=== PATIENT | male | born 1995 | race Caucasian/White ===

== ENCOUNTER 2018-09-27 18:49 | Observation (INO) ==
[2018-09-27] MEDS ORDERED: MoRPHine SULFATE 10 MG/ML CARP/VIAL IV STA (19:13)
[2018-09-27] MEDS ORDERED: ONDANSETRON INJ 2 MG/ML 2 ML VIAL IV STA (19:13)
[2018-09-27] MEDS: SODIUM CHLORIDE 0.9% 1000ML 1,000 ML IV SCH ×2 (19:27→21:12)
[2018-09-27 19:50] LABS: Basophils # (auto) 0.05 K/uL (0-0.2); Basophils % (auto) 0.3 %; Eosinophils # (auto) 0.09 K/uL (0-0.5); Eosinophils % (auto) 0.5 %; Hematocrit (blood only) 45.5 % (42-52); Hemoglobin 16.4 g/dL (14.0-18.0); Immature Granulocytes # (auto) 0.06 K/uL (0.00-0.02); Immature Granulocytes % (auto) 0.3 %; Lymphocytes # (auto) 1.62 K/uL (1.2-3.4); Lymphocytes % (auto) 8.6 %; Mean Corpuscular Volume 88.5 fL (80-100); Mean Platelet Volume 10.2 fL (7.4-10.4); Monocytes # (auto) 0.98 K/uL (0.11-0.59); Monocytes % (auto) 5.2 %; Neutrophils # (auto) 16.13 K/uL (1.4-6.5); Neutrophils % (auto) 85.1 %; Platelet Count 260 K/uL (130-400); RDW Coefficient of Variation 12.1 % (11.5-14.5); Red Blood Count 5.14 M/uL (4.7-6.1); White Blood Count 18.93 K/uL (4.8-10.8)
[2018-09-27 19:59] LABS: Albumin Level 4.9 gm/dl (3.4-5.0); BUN Creatinine Ratio 12.8 (10-20); Creatinine Clr Calc Pharmacy 107.1 ml/min; Est GFR (African American) 121.2; Est GFR (Non-African American) 104.6; Potassium 3.2 mmol/L (3.5-5.1)
[2018-09-27 20:02] LABS: Albumin Globulin Ratio 1.4 (0.9-2); Bilirubin,Total 1.1 mg/dl (0.1-1); Globulin 3.4 gm/dl (2.5-4.0); Total Protein 8.3 gm/dl (6.4-8.2)
[2018-09-27] MEDS ORDERED: IOVERSOL 100ml IV PRN (20:42)
--- NOTE | 2018-09-27 21:04 | CT Scan Report ---
ABDOMEN AND PELVIS CT WITH IV CONTRAST CT DOSE: 262.16 mGy.cm HISTORY: Acute abdominal pain with nausea and vomiting abd pain. N/V. TECHNIQUE: Multiaxial CT images of the abdomen and pelvis were performed following the use of intrave nous contrast. A dose lowering technique was utilized adhering to the principles of ALARA. COMPARISON STUDY: None. FINDINGS: Minimal dependent subsegmental bibasilar atelectasis. Additionally, there are a few scattered tree-i n-bud nodules with groundglass nodules of the basal right lower lobe measuring up to 7 mm. Indetermin ate centrally lucent thin-walled 4.5 cm nodule of the right lower lobe on image 52 series 3. No pneum atosis or pneumoperitoneum. Imaged inferior cardiac chambers appear unremarkable. Gallbladder, liver, spleen, pancreas and adrenal glands appear unremarkable. Kidneys, ureters and betty dder are unremarkable. Phleboliths noted about the pelvis. Aorta and IVC are unremarkable. No adenopa thy. No small bowel obstruction. Retained enteric contrast noted about the cecum and right hemicolon. Appe ndix is dilated and fluid-filled measuring up to 9 mm demonstrating mucosal hyperemia with surroundin g inflammatory stranding. Trace free pelvic fluid within the dependent pelvis, likely reactive. No dr ainable fluid collection or evidence of perforation. Mildly prominent right lower quadrant adenopathy , likely reactive. Soft tissues are within normal limits. The bones appear intact. IMPRESSION: 1. Findings compatible with acute uncomplicated appendicitis. No evidence of perforation or drainable fluid collection. 2. Partially imaged subsegmental tree-in-bud nodules of the right lower lobe suggest bronchiolitis wi th additional groundglass nodules demonstrating central lucency measuring up to 7 mm, suggesting infe ctious or inflammatory pneumonitis. 3. No bowel obstruction. Electronically signed by: Davie Bentley M.D. 09/27/2018 9:03 PM
[2018-09-27] MEDS ORDERED: cefOXitin 2,000 MG/60 ML BAG IV STA (21:26)
[2018-09-27] MEDS ORDERED: MoRPHine SULFATE 4 MG/ML 1 ML CARP\\VIAL IV STA (21:26)
[2018-09-27] MEDS ORDERED: SODIUM CHLORIDE 0.9% 1000ML 1,000 ML IV SCH (21:30)
[2018-09-27 21:33] LABS: Appearance Urine Clear (Clear); Bacteria Urine Automated Negative (Negative); Bilirubin Urine Negative (Negative); Cast Urine Automated 0 /lpf (0-5); Color Urine Yellow; Glucose Urine UA Negative (Negative); Leukocyte Esterase Urine Negative (Negative); Nitrite Urine Negative (Negative); Protein Urine Negative (Negative); Specific Gravity Urine 1.039 (1.000-1.030); Urobilinogen Urine Negative (Negative); WBC Urine Automated 0 /hpf (0-5)
[2018-09-27 21:34] LABS: Ketones Urine 3+ (Negative)
[2018-09-27 21:59] LABS: Amphetamines+Metham, Urine Neg (Neg); Barbiturates, Urine Neg (Neg); Benzodiazepine, Urine Neg (Neg); Cocaine, Urine Neg (Neg); MDMA (Ecstacy), Urine Neg (Neg); Methadone, Urine Neg (Neg); Opiate, Urine Pos (Neg); Phencyclidine, Urine Neg (Neg)
[2018-09-27] MEDS ORDERED: BUPIVACAINE/EPINEPHRINE 0.5% MPF 1:200,000 30 ML VIAL ONE (22:12)
--- NOTE | 2018-09-27 22:12 | History & Physical Report ---
Date of Service September 27, 2018 Assessment & Plan (1) Acute appendicitis: ct scan c/w acute appendicitis leukocytosis discussed options/risks with pt and family discussed (bleeding/infection/leaks/dvt/pe etc...) questions answered will proceed with tabatha santo History of Present Illness Primary Care Provider: NO PCP 23 y/o with abdominal pain beginning around noon today. progressively worsened. pain now from umbilicus toward RLQ. Allergies Allergy/AdvReac Type Severity Reaction Status Date / Time No Known Allergies Allergy Verified 09/27/18 19:40 Home Medications Home Medications Medication Instructions Recorded Confirmed Type No Known Home Medications 09/27/18 09/27/18 History Past Med/Surg History Social History Feels Safe at Home: Yes Smoking Status: Never smoker Review of Systems All systems reviewed & are unremarkable except as noted in HPI & below Physical Exam 2 Vital Signs (Past 24 Hours): Last Vital Signs Temp 36.4 C L 09/27/18 18:54 Pulse 83 09/27/18 20:51 Resp 18 09/27/18 20:51 BP 134/61 09/27/18 20:51 Pulse Ox 97 09/27/18 20:51 Physical Exam: alert/oriented. NAD Heent: Pearla. eomi Heart: RRR Lungs: CTA b/l abdomen: soft. +RLP ttp. +guarding. +rovsings ext: no c/c/e Results & Data Medications Administered Sodium Chloride (Nss 1000ml) 1,000 mls @ 999 mls/hr IV .Q1H1M AMAURY Stop: 09/27/18 22:30 Last Admin: 09/27/18 21:42 Dose: 999 mls/hr Ioversol (Optiray 320 100ml) 90 ml IV ONCE PRN PRN Reason: Interaction Checking Stop: 10/01/18 20:41 Last Admin: 09/27/18 20:42 Dose: 90 ml
--- NOTE | 2018-09-27 22:13 | Anesthesiology Consultation ---
Date of Service September 27, 2018 Assessment & Plan (1) Encounter for pre-operative examination: Chart Review Chart Review: Acceptable Risk for Surgery History Surgery Operation Date: 09/27/18 22:30 Proposed Procedures p Laparoscopic Appendectomy - Eliazar Hebert DO Height/Weight Height: 5 ft 7 in Weight: 67.1 kg Allergies Allergy/AdvReac Type Severity Reaction Status Date / Time No Known Allergies Allergy Verified 09/27/18 19:40 Medications Home Medications Medication Instructions Recorded Confirmed Last Taken No Known Home Medications 09/27/18 09/27/18 Unknown Active Medications Generic Name Dose Route Start Last Admin Trade Name Freq PRN Reason Stop Dose Admin Ioversol 90 ml 09/27/18 20:42 09/27/18 20:42 Optiray 320 100ml IV 10/01/18 20:41 90 ml ONCE PRN Administration Interaction Checking Beta Addis Beta Addis Taken Within 24 Hours: No Past Medical History Medical History No significant medical problems Past Surgical History Surgical History [place] teeth extracted Social History Smoking Status: Never smoker Physical Exam Vital Signs Last Vital Signs Temp 36.4 C L 09/27/18 18:54 Pulse 78 09/27/18 22:27 Resp 18 09/27/18 22:27 BP 130/86 09/27/18 22:27 Pulse Ox 100 09/27/18 22:27 Testing Laboratory Results 09/27/18 19:25 09/27/18 19:25 Urine Color Yellow 09/27/18 21:15 Urine Appearance Clear (Clear) 09/27/18 21:15 Urine pH 8.0 (4.5-7.5) H 09/27/18 21:15 Ur Specific [place] 1.039 (1.000-1.030) H 09/27/18 21:15 Urine Protein Negative (Negative) 09/27/18 21:15 Urine Glucose (UA) Negative (Negative) 09/27/18 21:15 Urine Ketones 3+ (Negative) H 09/27/18 21:15 Urine Nitrite Negative (Negative) 09/27/18 21:15 Ur Leukocyte Esterase Negative (Negative) 09/27/18 21:15 Urine WBC (Auto) 0 /hpf (0-5) 09/27/18 21:15 Urine RBC (Auto) 10-30 /hpf (0-4) H 09/27/18 21:15 U Hyaline Cast (Auto) 0 /lpf (0-5) 09/27/18 21:15 U Epithel Cells (Auto) 10-20 /lpf (0-5) H 09/27/18 21:15 Urine Bacteria (Auto) Negative (Negative) 09/27/18 21:15
[2018-09-27] MEDS ORDERED: fentaNYL citrate 100 MCG/2 ML VIAL ONE ×2 (22:18→23:19)
[2018-09-27] MEDS ORDERED: MIDAZOLAM HCL 1 MG/ML 2ML VIAL ONE (22:18)
[2018-09-27] MEDS ORDERED: HYDROmorphone INJ 1 MG/ML SYRINGE IV PRN (23:09)
[2018-09-27] MEDS ORDERED: ATROPINE SULFATE 0.1 MG/ML 5ML SYR IV PRN (23:09)
[2018-09-27] MEDS ORDERED: KETOROLAC 30 MG/ML VIAL IV PRN (23:09)
[2018-09-27] MEDS ORDERED: ONDANSETRON INJ 2 MG/ML 2 ML VIAL IV PRN (23:09)
[2018-09-27] MEDS ORDERED: METOCLOPRAMIDE HCL INJ 5 MG/ML 2 ML VIAL ONE (23:15)
[2018-09-27] MEDS ORDERED: GLYCOPYRROLATE 0.2 MG/ML VIAL ONE (23:15)
[2018-09-27] MEDS ORDERED: ONDANSETRON INJ 2 MG/ML 2 ML VIAL ONE (23:15)
[2018-09-27] MEDS ORDERED: LIDOCAINE HCL 2% 2 ML VIAL/AMP(20MG/ML) INFIL ONE (23:15)
[2018-09-27] MEDS ORDERED: NEOSTIGMINE METHYLSULFATE 5 MG/5 ML SYR ONE (23:16)
[2018-09-27] MEDS ORDERED: PROPOFOL IV EMULSION 10 MG/ML 20 ML VIAL IV ONE (23:16)
[2018-09-27] MEDS ORDERED: ROCURONIUM BROMIDE 10 MG/ML 5 ML VIAL ONE (23:16)
--- NOTE | 2018-09-27 23:43 | Operative Report ---
Post Operative Report Date of Surgery September 27, 2018 Pre & Post Diagnosis Operation Date: 09/27/18 22:30 Pre-Op Diagnosis: Acute appendicitis Post-Op Diagnosis: Acute appendicitis Procedure Operation Date: 09/27/18 22:30 Actual Procedures p Laparoscopic Appendectomy(Not Applicable) - Eliazar Hebert DO Surgeon Eliazar Hebert DO Power Hair Clipper n/a Estimated Blood Loss 5 Findings Consistent with Post-Op Diagnosis Specimens appendix Description of Procedure After informed consent was obtained the patient was taken to the operating room and placed in supine position. After successful intubation a Mukherjee catheter was placed and the left arm was tucked. A Mukherjee catheter was inserted sterilely. I began by making a periumbilical incision with an 11 blade scalpel and carried this down through the soft tissue using electrocautery. The anterior rectus fascia was opened using electrocautery and 2 #0 Vicryl stay sutures were placed. The peritoneum was elevated using hemostats and incised under direct vision using a Metzenbaum scissor. A finger sweep was performed. A 12 mm Odom trocar was placed and the abdomen was insufflated to 18 mmHg. A laparoscope was inserted and the abdomen was examined in 360. A suprapubic 5 mm port and a left lower quadrant 12 mm port were placed under direct vision. The patient was air planed to the left as well as placed in a slight Trendelenburg position. We began by looking in the right lower quadrant. We were able to readily identify the appendix and it was grossly inflamed. It had not perforated. There is a small amount of purulent fluid in the right lower quadrant and the pelvis. We immediately irrigated and suctioned this out. I was able to use primarily blunt dissection to pull the appendix away from the right lower quadrant sidewall. I then used a [place] dissector to create a window in the mesoappendix. I stapled the base of the appendix off with a brown 60 mm cartridge. Next I used a purple 60 mm cartridge and stapled off the mesentery of the appendix. It was then placed into an Endo Catch bag and removed from the camera port site. We thoroughly irrigated the right lower quadrant as well as the pelvis. There was adequate hemostasis. I ran the small bowel backwards from the terminal ileum for about 6 feet all of which was normal. All the peritoneal surfaces were normal. Small/ large bowel, liver, stomach etc. all appeared grossly normal. We did a final irrigation and then removed all the trochars and desufflated the abdomen. The fascia of the camera port as well as the left lower quadrant were closed using 0 Vicryl in figure-of- eight fashion. Wounds were all irrigated and closed using 4-0 Monocryl. Marcaine was injected around them for postoperative analgesia and skin glue used as a dressing. The patient was awakened extubated and transferred to recovery in stable condition. I attest to the content of the Intraoperative Record and any orders documented therein. Any exceptions are noted below.
--- NOTE | 2018-09-28 00:08 | Anesthesiology Progress Note ---
Date of Service September 28, 2018 Anesthesia Post Procedure Vital Signs Vital Signs: Temp Pulse Pulse Resp BP BP Pulse Ox 09/27/18 23:59 90 18 128/73 94 09/27/18 23:54 81 18 131/64 98 09/27/18 23:49 35.4 C L 96 H 18 136/76 98 09/27/18 22:27 78 18 130/86 100 09/27/18 20:51 83 18 134/61 97 09/27/18 18:54 36.4 C L 68 18 133/81 100 Pain Intensity Abdomen: Pain Intensity: 5 Notes Mental Status: alert / awake / arousable Patient Amnestic to Procedure: Yes Nausea / Vomiting: adequately controlled Pain: adequately controlled Airway Patency, RR, SpO2: stable & adequate BP & HR: stable & adequate Hydration State: stable & adequate Anesthetic Complications: no major complications apparent
--- NOTE | 2018-09-28 00:10 | Emergency Department Note ---
History of Present Illness General Chief complaint: Abdominal Pain Stated complaint: SEVERE STOMACHE PAIN Time Seen by Provider: 09/27/18 19:01 History of Present Illness Maximum Pain Intensity: 4 This is a 23-year-old male presenting to the emergency department for evaluation of abdominal pain that began around 12 noon today, roughly 9 hours ago. The patient states that he had some very mild upset stomach symptoms and was not able to eat much for lunch. He went to his mother's house for [place] dinner, and attempted to eat again around 3 PM, however he became very nauseated. The patient states his pain is diffuse in his abdomen and he feels like he needs to use the bathroom. He is very nauseated and has not been able to tolerate anything by mouth. The patient has not had fever or chills. No chest pain, chest tightness, or shortness of breath. He has otherwise usually healthy and does not have history of chronic medical disease. His current discomfort is a 4/10, however this worsens with certain movement and palpation in the abdomen. Home Medications Home Medications Medication Instructions Recorded Confirmed Type No Known Home Medications 09/27/18 09/27/18 History Allergies Allergy/AdvReac Type Severity Reaction Status Date / Time No Known Allergies Allergy Verified 09/27/18 19:40 Past Med/Surg History Medical History Acute appendicitis (Acute) No significant medical problems Surgical History [place] teeth extracted Social History Feels Safe at Home: Yes Smoking Status: Never smoker Review of Systems A total of 10 systems reviewed and were otherwise negative Physical Exam Vital Signs Vital Signs - 24 hr 09/27/18 18:54 09/27/18 20:51 09/27/18 22:27 Temperature 36.4 C L Temperature Source Oral Sepsis Recent Fever Within 48 Hours No Sepsis New/Unexplained Change in Mental Status No Sepsis Action Taken by Nursing No Action Required Pulse Rate 68 78 Pulse Rate [Finger] 83 Pulse Rhythm [Finger] Pulse Strength [Finger] Respiratory Rate 18 18 Respiratory Effort / Characteristics Respiratory Depth Respiratory Pattern Blood Pressure 133/81 130/86 Blood Pressure [Left Arm] 134/61 Blood Pressure Mean 98 Blood Pressure Mean [Left Arm] 85 Blood Pressure Position [Left Arm] Pulse Oximetry 100 97 100 Oxygen Delivery Method Room Air Room Air Room Air Oxygen Flow Rate 12/25/18 23:49 09/27/18 23:54 09/27/18 23:59 Temperature 35.4 C L Temperature Source Oral Sepsis Recent Fever Within 48 Hours Sepsis New/Unexplained Change in Mental Status Sepsis Action Taken by Nursing Pulse Rate Pulse Rate [Finger] 96 H 81 90 Pulse Rhythm [Finger] Regular Pulse Strength [Finger] Normal Normal Respiratory Rate 18 Respiratory Effort / Characteristics Non-Labored Spontaneous Non-Labored Spontaneous Non-Labored Respiratory Depth Normal Normal Normal Respiratory Pattern Regular Regular Regular Blood Pressure Blood Pressure [Left Arm] 136/76 131/64 128/73 Blood Pressure Mean Blood Pressure Mean [Left Arm] 96 86 91 Blood Pressure Position [Left Arm] Lying Lying Lying Pulse Oximetry 98 98 94 Oxygen Delivery Method Nasal Cannula Room Air Oxygen Flow Rate 2 2 VITALS: Vitals are noted on the nurse's note and reviewed by myself. Vital signs stable. GENERAL: Well-developed, well-nourished, white male who appears uncomfortable on examination. HEAD: Normocephalic atraumatic. EYES: Pupils equal round and reactive to light and accommodation. Conjunctivae without injection, sclerae without icterus. Extraocular movements intact. MOUTH: Mucous membranes moist. Tonsils are not enlarged. Pharynx without erythema, blood, or exudate. Uvula midline. Airway patent. NECK: Supple without nuchal rigidity. No lymphadenopathy. No thyromegaly. Cervical spine is nontender. HEART: Regular rate and rhythm without murmurs gallops or rubs. LUNGS: Clear to auscultation bilaterally without wheezes, rales or rhonchi. No retractions or accessory muscle use. ABDOMEN: Positive normal bowel sounds x 4. Soft with diffuse tenderness. No distinct point tenderness. The patient is guarding his abdomen. MUSCULOSKELETAL: No muscle atrophy, erythema, or edema noted. Full range of motion in all extremities. NEURO: Patient was alert and oriented to person place and time. CN II through XII grossly intact. SKIN: The skin was without rashes, erythema, edema, or bruising. Capillary refill less than 2 seconds. Course Administered Medications Ioversol (Optiray 320 100ml) 90 ml IV ONCE PRN PRN Reason: Interaction Checking Stop: 10/01/18 20:41 Last Admin: 09/27/18 20:42 Dose: 90 ml Discontinued Medications Bupivacaine HCl/Epinephrine Bitart (Sensorcaine/Epinephrine 0.5% Mpf 1:200,000) Confirm Administered Dose 30 ml .ROUTE .STK-MED ONE Stop: 09/27/18 22:13 Last Admin: 09/27/18 23:36 Dose: 17 ml Sodium Chloride (Nss 1000ml) 1,000 mls @ 999 mls/hr IV .Q1H1M AMAURY Stop: 09/27/18 21:15 Last Admin: 09/27/18 21:12 Dose: 999 mls/hr Infusion: 09/27/18 21:12 Dose: Admin: 09/27/18 19:27 Dose: 999 mls/hr Cefoxitin Sodium (Mefoxin) 2,000 mg in 60 mls @ 100 mls/hr IV NOW STA Stop: 09/27/18 22:01 Last Admin: 09/27/18 22:17 Dose: 100 mls/hr Sodium Chloride (Nss 1000ml) 1,000 mls @ 999 mls/hr IV .Q1H1M AMAURY Stop: 09/27/18 22:30 Last Admin: 09/27/18 21:42 Dose: 999 mls/hr Morphine Sulfate (Morphine Sulfate) 6 mg IV NOW STA Stop: 09/27/18 19:14 Last Admin: 09/27/18 19:26 Dose: 6 mg Morphine Sulfate (Morphine Sulfate) 4 mg IV NOW STA Stop: 09/27/18 21:27 Last Admin: 09/27/18 21:41 Dose: 4 mg Ondansetron HCl (Zofran) 4 mg IV NOW STA Stop: 09/27/18 19:14 Last Admin: 09/27/18 19:26 Dose: 4 mg Medical Decision Making Differential Diagnosis Differential diagnosis: Etiologies such as biliary colic, cholecystitis, hepatitis, pancreatitis, cardiac disease, pancreatitis, gastritis, peptic ulcer disease, appendicitis, cystitis, diverticulitis, mesenteric ischemia, inflammatory bowel disease, ileus , bowel obstruction, testicular/adnexal torsion, aortic pathology, shingles, as well as others were considered Laboratory Data Result diagrams: 09/27/18 19:25 09/27/18 19:25 Lab Results 09/27/18 09/27/18 09/27/18 Range/Units 19:25 19:25 21:15 WBC 18.93 H (4.8-10.8) K/uL RBC 5.14 (4.7-6.1) M/uL Hgb 16.4 (14.0-18.0) g/dL Hct 45.5 (42-52) % MCV 88.5 (80-100) fL MCH 31.9 (25-34) pg MCHC 36.0 (32-36) g/dL RDW Std Deviation 39.0 (36.4-46.3) fL RDW Coeff of Tadeo 12.1 (11.5-14.5) % Plt Count 260 (130-400) K/uL MPV 10.2 (7.4-10.4) fL Immature Gran % (Auto) 0.3 % Neut % (Auto) 85.1 % Lymph % (Auto) 8.6 % [place] % (Auto) 5.2 % Eos % (Auto) 0.5 % Baso % (Auto) 0.3 % Immature Gran # (Auto) 0.06 H (0.00-0.02) K/uL Neut # (Auto) 16.13 H (1.4-6.5) K/uL Lymph # (Auto) 1.62 (1.2-3.4) K/uL [place] # (Auto) 0.98 H (0.11-0.59) K/uL Eos # (Auto) 0.09 (0-0.5) K/uL Baso # (Auto) 0.05 (0-0.2) K/uL Sodium 136 (136-145) mmol/L Potassium 3.2 L (3.5-5.1) mmol/L Chloride 102 (98-107) mmol/L Carbon Dioxide 20 L (21-32) mmol/L Anion Gap 14.0 H (3-11) BUN 13 (7-18) mg/dl Creatinine 1.02 (0.6-1.4) mg/dl Est Cr Clr Drug Dosing 107.1 ml/min Est GFR ( Amer) 121.2 Est GFR (Non-Af Amer) 104.6 BUN/Creatinine Ratio 12.8 (10-20) Glucose 127 H (70-99) mg/dl Calcium 10.0 (8.5-10.1) mg/dl Total Bilirubin 1.1 H (0.1-1) mg/dl AST 29 (15-37) U/L ALT 49 (12-78) U/L Alkaline Phosphatase 115 (45-117) U/L Total Protein 8.3 H (6.4-8.2) gm/dl Albumin 4.9 (3.4-5.0) gm/dl Globulin 3.4 (2.5-4.0) gm/dl Albumin/Globulin Ratio 1.4 (0.9-2) Lipase 108 (73-393) U/L Urine Color Urine Appearance (Clear) Urine pH (4.5-7.5) Ur Specific [place] (1.000-1.030) Urine Protein (Negative) Urine Glucose (UA) (Negative) Urine Ketones (Negative) Urine Blood (Negative) Urine Nitrite (Negative) Urine Bilirubin (Negative) Urine Urobilinogen (Negative) Ur Leukocyte Esterase (Negative) Urine WBC (Auto) (0-5) /hpf Urine RBC (Auto) (0-4) /hpf U Hyaline Cast (Auto) (0-5) /lpf U Epithel Cells (Auto) (0-5) /lpf Urine Bacteria (Auto) (Negative) Urine Opiates Screen Pos H (Neg) Ur Methadone, Qual Neg (Neg) Urine Barbiturates Neg (Neg) Ur Phencyclidine (PCP) Neg (Neg) U Amphetamin/Meth Scrn Neg (Neg) MDMA (Ecstasy) Screen Neg (Neg) U Benzodiazepines Scrn Neg (Neg) Ur Cocaine Metabolite Neg (Neg) U Marijuana (THC) Screen Pos H (Neg) 09/27/18 Range/Units 21:15 WBC (4.8-10.8) K/uL RBC (4.7-6.1) M/uL Hgb (14.0-18.0) g/dL Hct (42-52) % MCV (80-100) fL MCH (25-34) pg MCHC (32-36) g/dL RDW Std Deviation (36.4-46.3) fL RDW Coeff of Tadeo (11.5-14.5) % Plt Count (130-400) K/uL MPV (7.4-10.4) fL Immature Gran % (Auto) % Neut % (Auto) % Lymph % (Auto) % [place] % (Auto) % Eos % (Auto) % Baso % (Auto) % Immature Gran # (Auto) (0.00-0.02) K/uL Neut # (Auto) (1.4-6.5) K/uL Lymph # (Auto) (1.2-3.4) K/uL [place] # (Auto) (0.11-0.59) K/uL Eos # (Auto) (0-0.5) K/uL Baso # (Auto) (0-0.2) K/uL Sodium (136-145) mmol/L Potassium (3.5-5.1) mmol/L Chloride (98-107) mmol/L Carbon Dioxide (21-32) mmol/L Anion Gap (3-11) BUN (7-18) mg/dl Creatinine (0.6-1.4) mg/dl Est Cr Clr Drug Dosing ml/min Est GFR ( Amer) Est GFR (Non-Af Amer) BUN/Creatinine Ratio (10-20) Glucose (70-99) mg/dl Calcium (8.5-10.1) mg/dl Total Bilirubin (0.1-1) mg/dl AST (15-37) U/L ALT (12-78) U/L Alkaline Phosphatase (45-117) U/L Total Protein (6.4-8.2) gm/dl Albumin (3.4-5.0) gm/dl Globulin (2.5-4.0) gm/dl Albumin/Globulin Ratio (0.9-2) Lipase (73-393) U/L Urine Color Yellow Urine Appearance Clear (Clear) Urine pH 8.0 H (4.5-7.5) Ur Specific [place] 1.039 H (1.000-1.030) Urine Protein Negative (Negative) Urine Glucose (UA) Negative (Negative) Urine Ketones 3+ H (Negative) Urine Blood 2+ H (Negative) Urine Nitrite Negative (Negative) Urine Bilirubin Negative (Negative) Urine Urobilinogen Negative (Negative) Ur Leukocyte Esterase Negative (Negative) Urine WBC (Auto) 0 (0-5) /hpf Urine RBC (Auto) 10-30 H (0-4) /hpf U Hyaline Cast (Auto) 0 (0-5) /lpf U Epithel Cells (Auto) 10-20 H (0-5) /lpf Urine Bacteria (Auto) Negative (Negative) Urine Opiates Screen (Neg) Ur Methadone, Qual (Neg) Urine Barbiturates (Neg) Ur Phencyclidine (PCP) (Neg) U Amphetamin/Meth Scrn (Neg) MDMA (Ecstasy) Screen (Neg) U Benzodiazepines Scrn (Neg) Ur Cocaine Metabolite (Neg) U Marijuana (THC) Screen (Neg) Imaging Data Radiologist's Impression: ABDOMEN AND PELVIS CT WITH IV CONTRAST CT DOSE: 262.16 mGy.cm HISTORY: Acute abdominal pain with nausea and vomiting abd pain. N/V. TECHNIQUE: Multiaxial CT images of the abdomen and pelvis were performed following the use of intravenous contrast. A dose lowering technique was utilized adhering to the principles of ALARA. COMPARISON STUDY: None. FINDINGS: Minimal dependent subsegmental bibasilar atelectasis. Additionally, there are a few scattered tree-in-bud nodules with groundglass nodules of the basal right lower lobe measuring up to 7 mm. Indeterminate centrally lucent thin-walled 4.5 cm nodule of the right lower lobe on image 52 series 3. No pneumatosis or pneumoperitoneum. Imaged inferior cardiac chambers appear unremarkable. Gallbladder, liver, spleen, pancreas and adrenal glands appear unremarkable. Kidneys, ureters and bladder are unremarkable. Phleboliths noted about the pelvis. Aorta and IVC are unremarkable. No adenopathy. No small bowel obstruction. Retained enteric contrast noted about the cecum and right hemicolon. Appendix is dilated and fluid-filled measuring up to 9 mm demonstrating mucosal hyperemia with surrounding inflammatory stranding. Trace free pelvic fluid within the dependent pelvis, likely reactive. No drainable fluid collection or evidence of perforation. Mildly prominent right lower quadrant adenopathy, likely reactive. Soft tissues are within normal limits. The bones appear intact. IMPRESSION: 1. Findings compatible with acute uncomplicated appendicitis. No evidence of perforation or drainable fluid collection. 2. Partially imaged subsegmental tree-in-bud nodules of the right lower lobe suggest bronchiolitis with additional groundglass nodules demonstrating central lucency measuring up to 7 mm, suggesting infectious or inflammatory pneumonitis. 3. No bowel obstruction. MDM Narrative Physical exam and history were performed. Nursing notes, EMR, and Medication List were personally reviewed. Patient appears to have diffuse abdominal pain bring him to the emergency department. The patient appears quite uncomfortable on examination. IV access was established and labs were obtained. The patient was given IV morphine and IV Zofran for comfort. He was sent to CT scan where CT scan with IV contrast was performed. The patient's blood work is as above and was reviewed. He does have a markedly elevated white blood cell count of just under 19,000. He does not have a gross anemia or significant electrolyte imbalance. He does have an associated left shift. Lipase and transaminases are not diagnostic. Urine shows some evidence of dehydration but no gross infection. The patient CT scan is as above and was reviewed by myself and radiology. The patient appears to have acute appendicitis with the appendix measuring 9 mm. The patient was informed of his findings, and the case was discussed with the on -call surgeon, Dr. Hebert. The patient was given additional fluids as well as IV Mefoxin. Dr. Hebert will evaluate the patient here in the ER. Please see Dr. Hebert's dictation for further patient course, plan, and disposition. The chart was completed utilizing [employer] Speech Voice Recognition Software. Grammatical errors, random word insertions, pronoun errors, and incomplete sentences are an occasional consequence of this system due to software limitations, ambient noise, and hardware issues. Any formal questions or concerns about the content, text, or information contained within the body of this dictation should be directly addressed to the provider for clarification. . Impression & Plan Acute appendicitis Discharge Plan Visit Data Chief Complaint: Abdominal Pain Stated Complaint: SEVERE STOMACHE PAIN ED Provider: Omero Macedo ED Midlevel Provider: Varinder Pearce Discharge Problem: Acute appendicitis Patient Disposition: Home - Self-Care Discharge Instructions Interventions: ED Discharge Assessment Last Done: 09/27/18 22:27 Forms Stand Alone Forms: Avenue Right, Important Visit Information Prescriptions Prescriptions: No Action No Known Home Medications RF: 0 Referrals Referrals: PCP,NO [Primary Care Provider] -
[2018-09-28] MEDS ORDERED: ACETAMINOPHEN 1,000 MG/100 ML VIAL IV PRN (01:14)
[2018-09-28] MEDS ORDERED: IBUPROFEN 200 MG TAB PO PRN (01:14)
[2018-09-28] MEDS ORDERED: ONDANSETRON INJ 2 MG/ML 2 ML VIAL IV PRN (01:14)
[2018-09-28] MEDS ORDERED: MoRPHine SULFATE 2 MG/ML CARP IV PRN (01:14)
[2018-09-28] MEDS ORDERED: MoRPHine SULFATE 4 MG/ML 1 ML CARP\\VIAL IV PRN (01:14)
[2018-09-28] MEDS: LACTATED RINGER'S 1,000 ML IV SCH ×3 (01:58→17:20)
[2018-09-28] MEDS: CEFAZOLIN 2000MG 2,000 MG/15 ML SYR IV SCH ×3 (01:58→17:59)
[2018-09-28] MEDS: HYDROCODONE/ACETAMOPHEN 5/325MG TAB PO PRN ×6 (02:05→23:49)
[2018-09-28 07:28] LABS: Basophils # (auto) 0.02 K/uL (0-0.2); Basophils % (auto) 0.1 %; Eosinophils # (auto) 0.05 K/uL (0-0.5); Eosinophils % (auto) 0.4 %; Hematocrit (blood only) 38.7 % (42-52); Hemoglobin 13.4 g/dL (14.0-18.0); Immature Granulocytes # (auto) 0.03 K/uL (0.00-0.02); Immature Granulocytes % (auto) 0.2 %; Lymphocytes # (auto) 1.95 K/uL (1.2-3.4); Lymphocytes % (auto) 13.8 %; Mean Corpuscular Hgb Conc 34.6 g/dL (32-36); Mean Corpuscular Volume 90.4 fL (80-100); Mean Platelet Volume 10.2 fL (7.4-10.4); Monocytes # (auto) 1.18 K/uL (0.11-0.59); Monocytes % (auto) 8.4 %; Neutrophils % (auto) 77.1 %; Platelet Count 184 K/uL (130-400); RDW Coefficient of Variation 12.5 % (11.5-14.5); RDW Standard Deviation 41.2 fL (36.4-46.3); Red Blood Count 4.28 M/uL (4.7-6.1); White Blood Count 14.13 K/uL (4.8-10.8)
--- NOTE | 2018-09-28 07:57 | Anesthesiology Progress Note ---
Date of Service September 28, 2018 Anesthesia Post Procedure Vital Signs Vital Signs: Temp Pulse Pulse Pulse Pulse Resp BP 09/28/18 07:16 36.7 C 83 16 09/28/18 04:10 36.8 C 86 14 09/28/18 03:15 36.5 C 108 H 16 09/28/18 02:10 36.6 C 93 H 14 09/28/18 01:40 36.9 C 91 H 14 09/28/18 01:10 36.7 C 88 16 09/28/18 01:00 81 18 09/28/18 00:53 98 H 18 09/28/18 00:34 93 H 18 09/28/18 00:29 85 16 09/28/18 00:24 37.2 C 94 H 18 09/28/18 00:19 80 18 09/28/18 00:14 80 18 09/28/18 00:09 82 18 09/28/18 00:04 37 C 93 H 18 09/27/18 23:59 90 18 09/27/18 23:54 81 18 09/27/18 23:49 35.4 C L 96 H 18 09/27/18 22:27 78 18 130/86 09/27/18 20:51 83 18 09/27/18 18:54 36.4 C L 68 18 133/81 BP BP Pulse Ox 09/28/18 07:16 114/65 97 09/28/18 04:10 112/59 L 97 09/28/18 03:15 135/64 96 09/28/18 02:10 156/65 H 96 09/28/18 01:40 138/74 95 09/28/18 01:10 123/83 94 09/28/18 01:00 121/60 97 09/28/18 00:53 143/76 H 97 09/28/18 00:34 138/76 95 09/28/18 00:29 123/69 95 09/28/18 00:24 132/68 96 09/28/18 00:19 128/69 94 09/28/18 00:14 124/70 94 09/28/18 00:09 125/74 95 09/28/18 00:04 124/67 95 09/27/18 23:59 128/73 94 09/27/18 23:54 131/64 98 09/27/18 23:49 136/76 98 09/27/18 22:27 100 09/27/18 20:51 134/61 97 09/27/18 18:54 100 Pain Intensity Abdomen: Pain Intensity: 5 Notes Mental Status: alert / awake / arousable Patient Amnestic to Procedure: Yes Nausea / Vomiting: adequately controlled Pain: adequately controlled Airway Patency, RR, SpO2: stable & adequate BP & HR: stable & adequate Hydration State: stable & adequate Anesthetic Complications: no major complications apparent and Pt Satisfied with anesthetic care
--- NOTE | 2018-09-28 12:44 | Surgery Progress Note ---
Date of Service September 28, 2018 Assessment & Plan (1) Acute appendicitis: POD 1 lap appy discharge when tolerating diet and po analgesics pt seen. c/o of some discomfort and nausea. not ready to go yet/wishes to stay an additional night increase activity ADAT hopeful d/c tomorrow Subjective pain control marginal this AM, no nausea Physical Exam 2 Vital Signs (Past 24 Hours): Last Vital Signs Temp 36.8 C 09/28/18 12:18 Pulse 65 09/28/18 12:18 Resp 18 09/28/18 12:18 BP 104/54 L 09/28/18 12:18 Pulse Ox 96 09/28/18 12:18 Gastrointestinal (Abdomen): Inspection/Auscultation: abdomen not distended Percussion/Palpation: abdomen soft _ (1) Acute appendicitis Acute appendicitis type: Appendicitis abscess presence: Appendicitis gangrene presence: Appendicitis perforation presence:
[2018-09-29] MEDS: CEFAZOLIN 2000MG 2,000 MG/15 ML SYR IV SCH ×2 (01:54→09:37)
[2018-09-29] MEDS: HYDROCODONE/ACETAMOPHEN 5/325MG TAB PO PRN ×3 (05:34→13:48)
[2018-09-29] MEDS: LACTATED RINGER'S 1,000 ML IV SCH (05:35)
--- NOTE | 2018-09-29 08:21 | Surgery Progress Note ---
Date of Service September 29, 2018 Assessment & Plan (1) Acute appendicitis: POD 2 lap appy home if tolerates diet Subjective some incision pain, on full liquids Physical Exam 2 Vital Signs (Past 24 Hours): Last Vital Signs Temp 36.7 C 09/29/18 07:49 Pulse 65 09/29/18 07:49 Resp 18 09/29/18 07:49 BP 107/67 09/29/18 07:49 Pulse Ox 97 09/29/18 07:49 Gastrointestinal (Abdomen): Inspection/Auscultation: + abdominal surgical incision (clean, dry) Percussion/Palpation: abdomen soft _ (1) Acute appendicitis Acute appendicitis type: Appendicitis abscess presence: Appendicitis gangrene presence: Appendicitis perforation presence:
[2018-10-01 00:13] LABS: Hydrocodone Urine NEGATIVE NG/ML (CUTOFF=50); Hydromor Urine NEGATIVE NG/ML (CUTOFF=50); Marijuana Quant, GCMS Urine 101 NG/ML (CUTOFF=5); Morphine Urine 4760 NG/ML (CUTOFF=50); Norhydrocodone Conf Ur NEGATIVE NG/ML (CUTOFF=50); Noroxycodone Urine 141 NG/ML (CUTOFF=50); Oxycodone Urine 93 NG/ML (CUTOFF=50)
--- NOTE | 2018-10-05 10:59 | Discharge Summary ---
PRIMARY DISCHARGE DIAGNOSIS: Acute appendicitis. HOSPITAL COURSE: The patient is a 23-year-old male who presented to the Emergency Department with abdominal pain that began earlier in the day. His white count was 18,000. CT was consistent with acute appendicitis. He was taken to the operating room overnight for laparoscopic appendectomy. The procedure was well tolerated. He was transferred to the surgical floor for observation. He continued to require IV analgesics throughout the following day. He was slowly advancing diet. By the second day, he was tolerating regular diet and oral analgesics. He was stable for discharge. His abdomen was soft. Incisions were dry. DISCHARGE INSTRUCTIONS: Discharged to home. Follow up with Dr. Hebert in 2 weeks. DISCHARGE MEDICATIONS: [place] 1-2 tablets every 4 hours as needed. MTDD
== END 2018-09-29 14:31 | disposition home or self-care (01) ==
LOC: ED 18:49 → 3N 18:49
DX: K35.80 Unspecified acute appendicitis